=== PATIENT | female | born 1960 | race Hispanic/Latino ===

== ENCOUNTER 2021-03-20 12:52 | Outpatient (CLI) | payer OTHER | END 2021-03-20 12:53 | disposition home or self-care (01) | LOC: TBSIIMAG 12:52 | PROVIDERS: ATTEND Neurological Surgery | DX: M54.5 Low back pain (principal); M48.07 Spinal stenosis, lumbosacral region; Q76.49 Other congenital malformations of spine, not associated with scoliosis | CPT/HCPCS: 72148 ==

== ENCOUNTER 2021-04-17 09:55 | Outpatient (CLI) | payer BC | END 2021-04-17 09:56 | disposition home or self-care (01) | LOC: TBSIIMAG 09:55 | PROVIDERS: ATTEND Surgery | DX: M54.50 Low back pain, unspecified (principal); M43.16 Spondylolisthesis, lumbar region; M51.36 Other intervertebral disc degeneration, lumbar region | CPT/HCPCS: 72110 ==

== ENCOUNTER 2022-04-17 09:25 | Outpatient (CLI) | payer OTHER | END 2022-04-17 09:26 | disposition home or self-care (01) | LOC: BICCT 09:25 | PROVIDERS: ATTEND Surgery | DX: M43.16 Spondylolisthesis, lumbar region (principal); M47.816 Spondylosis without myelopathy or radiculopathy, lumbar region | CPT/HCPCS: 72131 ==

== ENCOUNTER 2022-05-06 10:20 | Outpatient (CLI) | payer BC | END 2022-05-06 10:21 | disposition home or self-care (01) | LOC: TBSIIMAG 10:20 | PROVIDERS: ATTEND Clinical Nurse Specialist Medical-Surgical | DX: M51.16 Intervertebral disc disorders with radiculopathy, lumbar region (principal); M47.26 Other spondylosis with radiculopathy, lumbar region; M48.07 Spinal stenosis, lumbosacral region; M43.17 Spondylolisthesis, lumbosacral region; M71.38 Other bursal cyst, other site | CPT/HCPCS: 72148 ==

== ENCOUNTER 2022-06-23 11:11 | Outpatient (CLI) | payer BC | END 2022-06-23 11:12 | disposition home or self-care (01) | LOC: LABBT 11:11 | PROVIDERS: ATTEND Surgery | DX: Z01.810 Encounter for preprocedural cardiovascular examination (principal); M54.16 Radiculopathy, lumbar region; M43.16 Spondylolisthesis, lumbar region | CPT/HCPCS: 93005; 93010 ==

== ENCOUNTER 2022-08-07 10:24 | Outpatient (CLI) | payer BC | END 2022-08-07 10:25 | disposition home or self-care (01) | LOC: TBSIIMAG 10:24 | PROVIDERS: ATTEND Surgery | DX: M48.061 Spinal stenosis, lumbar region without neurogenic claudication (principal); Z98.1 Arthrodesis status | CPT/HCPCS: 72100 ==

== ENCOUNTER 2023-02-03 08:07 | Outpatient (CLI) | payer BC | END 2023-02-03 08:08 | disposition home or self-care (01) | LOC: SCSMRI 08:07 | PROVIDERS: ATTEND Surgery | DX: M47.22 Other spondylosis with radiculopathy, cervical region (principal); R20.0 Anesthesia of skin; R29.898 Other symptoms and signs involving the musculoskeletal system; M50.11 Cervical disc disorder with radiculopathy, high cervical region; M50.121 Cervical disc disorder at C4-C5 level with radiculopathy; M50.122 Cervical disc disorder at C5-C6 level with radiculopathy; M50.123 Cervical disc disorder at C6-C7 level with radiculopathy | CPT/HCPCS: 72050; 72141 ==

== ENCOUNTER 2023-03-02 08:30 | Outpatient (CLI) | payer MEDICARE | END 2023-03-02 08:31 | disposition home or self-care (01) | LOC: BICCT 08:30 | PROVIDERS: ATTEND Specialist | DX: E04.2 Nontoxic multinodular goiter (principal) | CPT/HCPCS: 70491; 82565 ==